=== PATIENT | male | born 1930 | race Caucasian/White ===

== ENCOUNTER 2018-03-28 12:25 | Emergency (ER) | payer OTHER, BC ==
[2018-03-28] MEDS ORDERED: SODIUM CHLORIDE FOR INHALATION 3 ML VIAL.NEB IH ONE (12:47)
--- NOTE | 2018-03-28 12:52 | PDOC ---
Attending Attestation - Resident Resident Name: Елена Pacheco - ED Attending Attestation I have performed the following: I have examined & evaluated the patient, The case was reviewed & discussed with the resident, I agree w/resident's findings & plan, Exceptions are as noted - HPI HPI: 03/28/18 12:50 87y F hx of CVA (2011), CAD/NE, myelodysplastic syndrome, myeloplastic syndrome , bph, parkinsons, HL, sent from longterm for evlaution of sob. The patient states that he's been having some shortness of breath and cough for the past several weeks, denies any fever, chills, chest pain, nausea, vomiting, diaphoresis, abdominal pain, headache, palpitations. And had a recent hospitalization and was discharged to longterm. No history provided from the longterm. Per EMS the patient was given nasal cannula with saturation at 100% on 3 L GENERAL: The patient is awake, alert, and fully oriented, Nontoxic - in no acute distress. HEAD: Normocephalic, atraumatic. EYES: extraocular movements intact, sclera anicteric, conjunctiva clear. ENT: hoarse voice, Moist mucous membranes. NECK: Normal range of motion, supple LUNGS: rhonchorus breath sounds b/l HEART: Regular rate and rhythm, normal S1 and S2 without murmur, rub or gallop. ABDOMEN: Soft, nontender, No guarding, no rebound. . No CVA tenderness EXTREMITIES: Normal range of motion, trace symmetric edema. neg homans, no calf tenderness NEUROLOGICAL: No facial assymetry, Normal speech, PSYCH: Normal mood, normal affect. SKIN: Warm, Dry, normal turgor, Differential for the patient's symptoms includes possible viral syndrome, aspiration pneumonia, ACS, CHF Will obtain blood work, chest x-ray, ekg will give pt a neb will reassess - Physicial Exam PE: 03/28/18 16:58 see above - Medical Decision Making 03/28/18 16:57 labs reviewed - anemia basleine cxr neg for process pt charli gimproved afer nebs vitals repeated and normal (her last sat was on 2l of NC, i repeated it and i ti s95 on RA, HR of 99) no respiratory distress will dc the pt back to longterm retur nprecautions were discussed I discussed the physical exam findings, ancillary test results and final diagnoses with the patient. I answered all of the patient's questions. The patient was satisfied with the care received and felt comfortable with the discharge plan and treatment plan. The patient will call their primary care physician within 24 hours to arrange follow-up and will return to the Emergency Department with any new, persistent or worsening symptoms. 03/28/18 17:01 case was discussed with candida hernandez (miquel) [phone] was noted to hvae some sob [facility], was evaluated and discharged back to the [facility]. Was notified again of the same, and was sent to the hospital for evaluation. pt seems to be at his bsaeline curerntly. Agrees will dc the pt back to continue his rehab. PMD: maurice Cole [place] Heart Score/ECG Review - ECG Impressions Comment:: 03/28/18 17:18 Twelve-lead EKG was performed and reviewed by me. There is normal sinus rhythm with a normal rate. Rate of 101 Right bundle-branch block Left anterior fascicular block
--- NOTE | 2018-03-28 13:06 | PDOC ---
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 He reports that he has had a cough and has felt sort of breath for "a while " and has a history of coughing when he eats or drinks; he is on a dysphagia diet at home. It is unclear why he was sent from the SNF today or whether there was any acute change in his condition. Mr Germain denies any chest pain, change in his cough or feeling of SOB, fever, chills, nausea or vomiting, change in urinary symptoms. He wishes to return to his fdc. Past History - Past Medical History Allergies/Adverse Reactions: Allergies Allergy/AdvReac Type Severity Reaction Status Date / Time No Known Allergies Allergy Verified 03/22/14 10:21 Home Medications: Ambulatory Orders Cholecalciferol (Vitamin D3) [Vitamin D3] 1,000 unit PO DAILY 03/08/18 Finasteride 5 mg PO DAILY 03/08/18 Melatonin 10 mg PO DAILY 03/08/18 Atorvastatin Ca [Lipitor] 10 mg PO HS tablet 03/20/18 Bisacodyl Suppository [Dulcolax Suppository -] 10 mg RC PRN PRN supp.rect 03/20 Calcium 500Mg/Vit-D 200 Units [Os-Tyler 500+D -] 2 tab PO DAILY tab 03/20/18 Finasteride [Proscar -] 5 mg PO DAILY tablet 03/20/18 Patient's Own Medication [Patient's Own Med (Nf) -] 1 each PO BID med 03/20/18 Tamsulosin HCl [Flomax -] 0.4 mg PO DAILY@0830 cap.er.24h 03/20/18 Anemia: Yes (MYELODYSPLASIA ANEMIA) Asthma: No Cancer: No Cardiac Disorders: No CVA: Yes (2011) COPD: No CHF: No Dementia: No Diabetes: No GI Disorders: No Disorders: Yes (PROSTATIC HYPERTROPHY) Hypercholesterolemia: Yes Liver Disease: No Seizures: No Thyroid Disease: No - Surgical History Abdominal Surgery: Yes (INGUNIAL HERNIA REPAIR) Appendectomy: No Cardiac Surgery: No Cholecystectomy: No Lung Surgery: No Neurologic Surgery: No Orthopedic Surgery: No - Reproductive History Testicular CA: No - Immunization History Immunization Up to Date: Yes - Suicide/Smoking/Psychosocial Hx Smoking History: Former smoker Have you smoked in the past 12 months: No Number of Cigarettes Smoked Daily: 0 Cigars Per Day: 0 Hx Alcohol Use: Yes (OCC WINE) Drug/Substance Use Hx: No Substance Use Type: None Hx Substance Use Treatment: No Review of Systems - Review of Systems Comments:: General: No fevers, no chills, no weight or appetite change, no malaise HEENT: No changes in vision, no changes in hearing, no congestion, no sore throat CV: No chest pain, no palpitations, no LE edema Pulm: See HPI. GI: No nausea or vomiting, no change in bowel habits, no melena : No frequency, no urgency, no dysuria Musc: No back pain, no joint swelling, no recent injury Skin: No rash, no lesions, no erythema Endo: No excessive thirst, no heat/cold intolerance Heme: No unusual bruising or bleeding, no swollen glands Neuro: No syncope, no numbness/tingling, no focal weakness. +h/o recent fall Vasc: No claudication Psych: No recent change in mood, no SI or HI *Physical Exam - Physical Exam Comments: General: Comfortable, no acute distress HEENT: PERRL, EOMI, MMM. Voice hoarse. Cards: RRR, no murmur appreciated Pulm: Loud upper airway sounds. No wheezing appreciated, but difficult exam due to upper airway noise Abd: Soft, nontender, nondistended : No CVA tenderness Ext: Atraumatic. No LE edema. moves all extremities Vasc: Extremities WWP. Palpable radial and pedal pulses bilaterally Neuro: A&Ox3, CN grossly intact, normal speech, motor/sensory grossly intact and symmetric Psych: Mood appropriate to situation ED Treatment Course - LABORATORY CBC & Chemistry Diagram: 03/28/18 13:45 03/28/18 13:45 - RADIOLOGY Radiology Studies Ordered: Category Date Time Status CHEST X-RAY PORTABLE* [RAD] Stat Radiology 03/28/18 12:45 Ordered Medical Decision Making - Medical Decision Making 03/28/18 13:05 Alejandro Germain is an 87yo man with multiple chronic medical problems including Parkinsons, h/o CVA, h/o RI, dysphagia and aspiration, recent admission for aspiration pneumonia who presents from his SNF today due to shortness of breath. - Mr Germain is denying any acute change in his condition, unclear why he was sent from the SNF today or if his SOB has worsened recently - CBC, CMP, troponin, CXR, EKG, BNP - Sepsis order set per Dr Hardwick - lactate, coags, blood cx, UA, VBG 03/28/18 15:24 - Labs completed, at baseline - Feels improved following saline nebs - Still requests to go back to SNF - Attempted to contact SNF nursing staff and physician, two calls made without answer Mr Germain appears to be at his baseline; plan to discharge back to his SNF. Should follow up with his primary physician, Dr Elaine, within the next 1-2 days. Seen and discussed with Dr Hardwick. *DC/Admit/Observation/Transfer Diagnosis at time of Disposition: Shortness of breath - Discharge Dispostion Disposition: [facility] Condition at time of disposition: Fair Decision to Admit order: No - Referrals Referrals: Ad Beard [Primary Care Provider] - - Patient Instructions Printed Discharge Instructions: DI for Shortness of Breath - Post Discharge Activity
[2018-03-28 13:58] LABS: HEMATOCRIT 25.3 % (35.4-49); HEMOGLOBIN 8.5 GM/dL (11.7-16.9); MCH 28.7 pg (25.7-33.7); MCHC 33.7 g/dl (32.0-35.9); MEAN CELL VOLUME 85.1 fl (80-96); MEAN PLT VOLUME 8.1 fl (7.5-11.1); PLATELET COUNT 109 K/MM3 (134-434); RBC 2.97 M/mm3 (4.00-5.60); RDW 19.3 % (11.9-15.9)
[2018-03-28 14:16] VITALS: BMI 25.2
[2018-03-28 14:17] LABS: ALBUMIN 3.8 g/dl (3.4-5.0); ANION GAP 9 (8-16); BLOOD UREA NITROGEN 19 mg/dL (7-18); CALCIUM 8.4 mg/dL (8.5-10.1); CHLORIDE 107 mmol/L (98-107); CO2 25 mmol/L (21-32); CREATININE 1.2 mg/dL (0.7-1.3); GLUCOSE,RANDOM 104 mg/dL (74-106); POTASSIUM 4.2 mmol/L (3.5-5.1); SGOT/AST 97 U/L (15-37); SGPT/ALT 183 U/L (12-78); SODIUM 141 mmol/L (136-145)
[2018-03-28 14:20] LABS: ALK PHOS 157 U/L (45-117); BILIRUBIN,TOTAL 1.7 mg/dL (0.2-1.0); N-TERMINAL BNP 701.36 pg/ml (5-450); TOT PROT 7.9 g/dl (6.4-8.2)
[2018-03-28 15:11] LABS: VENOUS PH 7.36 (7.32-7.42)
[2018-03-28 15:36] LABS: INR 1.44 (0.82-1.09); PROTHROMBIN TIME (PATIENT) 16.3 SEC (9.7-13.0)
[2018-03-28 19:17] VITALS: BP 138/79; PULSE 92; TEMP 98.2
--- NOTE | 2018-03-29 11:34 | EKG ---
Test Reason : Blood Pressure : / mmHG Vent. Rate : 101 BPM Atrial Rate : 101 BPM P-R Int : 146 ms QRS Dur : 132 ms QT Int : 362 ms P-R-T Axes : 034 -71 007 degrees QTc Int : 469 ms SINUS TACHYCARDIA WITH FREQUENT PREMATURE VENTRICULAR COMPLEXES RIGHT BUNDLE BRANCH BLOCK LEFT ANTERIOR FASCICULAR BLOCK BIFASCICULAR BLOCK ABNORMAL ECG WHEN COMPARED WITH ECG OF 08-MAR-2018 10:49, SINUS RHYTHM HAS REPLACED WIDE QRS RHYTHM Confirmed by KISHORE GANN, ELDA ([id number]) on 03/29/2018 11:34:02 AM Referred By: Confirmed By:ELDA NOVAK MD
== END 2018-03-28 19:16 ==
LOC: JER 12:25
PROC: 3E0F7GC Introduction of Other Therapeutic Substance into Respiratory Tract, Via Natural or Artificial Opening (ICD-10-PCS; principal; 2018-03-28)
DX: R06.02 Shortness of breath (principal); I25.2 Old myocardial infarction; I25.10 Atherosclerotic heart disease of native coronary artery without angina pectoris; D46.9 Myelodysplastic syndrome, unspecified; N40.0 Benign prostatic hyperplasia without lower urinary tract symptoms; G20 Parkinson's disease; J69.0 Pneumonitis due to inhalation of food and vomit; Z86.73 Personal history of transient ischemic attack (TIA), and cerebral infarction without residual deficits
CPT/HCPCS: 36415; 71045-TC-FY; 80053; 82803; 83605; 83880; 84484; 85027; 85610; 87040; 93005; 93010; 99283-25